=== PATIENT | male | born 1945 | race Caucasian/White ===

== ENCOUNTER → 2020-01-17 16:44 | Outpatient (CLI) | payer MEDICARE, OTHER | END | disposition home or self-care (01) | LOC: D.LAB 16:44 | PROVIDERS: ATTEND Nurse Practitioner Adult Health | DX: Z11.59 Encounter for screening for other viral diseases (principal); Z71.1 Person with feared health complaint in whom no diagnosis is made ==

== ENCOUNTER → 2020-01-20 14:16 | Outpatient (CLI) | payer MEDICARE, OTHER | END | disposition home or self-care (01) | LOC: D.RT 14:16 | PROVIDERS: ATTEND Internal Medicine Cardiovascular Disease | DX: J44.9 Chronic obstructive pulmonary disease, unspecified (principal) ==

== ENCOUNTER 2020-07-20 05:03 | Inpatient (IN) | payer MEDICARE, OTHER ==
[2020-07-18 15:17] LABS: APTT 27.5 SECONDS (22.8-39.4); INR 1.04 (0.85-1.17); PROTIME 12.6 SECONDS (11.6-15.0)
[2020-07-18 15:20] LABS: BILIRUBIN NEGATIVE (NEGATIVE); KETONE NEGATIVE (NEGATIVE); NITRITE NEGATIVE (NEGATIVE); UROBILINOGEN NORMAL mg/dL (< 2)
[2020-07-18 15:21] LABS: HEMATOCRIT 45.8 % (42.0-54.0); HEMOGLOBIN 15.7 g/dL (13.5-17.5); MCH 34.1 pg (26.0-34.0); MCHC 34.3 g/dL (31.0-37.0); MCV 99.3 fL (80.0-100.0); MEAN PLATELET VOLUME 9.7 fL (7.4-10.4); RBC 4.61 10x6/uL (4.20-6.10); RDW 13.1 % (11.5-14.5); WBC 6.1 10x3/uL (4.8-10.8)
[2020-07-18 15:35] LABS: ALBUMIN 4.2 g/dL (3.4-5.0); ANION GAP 13.7 mmol/L (8-16); BILIRUBIN - TOTAL 0.6 mg/dL (0.2-1.3); CALCIUM 9.2 mg/dL (8.5-10.1); CARBON DIOXIDE 27.3 mmol/L (21.0-32.0); CREATININE - SERUM 1.1 mg/dL (0.6-1.3); PROTEIN - SERUM 7.2 g/dL (6.4-8.2)
[~2020-07-20] VITALS: Ht 175.3 cm; Wt 75.9 kg
[2020-07-20] VITALS (15 sets, daily range): BP systolic 95–140; BP diastolic 49–75; BMI 24.7
--- NOTE | ~2020-07-20 | HEMODYNAMI ---
PATIENT:MARY ANN HERNDON JUDITH MEDICAL RECORD: [id number] : 41 LOCATION:[facility] D.[facility] ADMISSION DATE: 07/20/20 Generatedon:115:50 Patient name: MARY ANN HERNDON Patient #: [id number] SSN: : 1945 Date of study: Page: Of Hemodynamic Procedure Report Patient Data Patient Demographics First Name: MARY ANN Gender: Male Last Name: YANICK : 1945 [facility] Initial: JUDITH Age: 75 year(s) Patient #: [id number] Race: Unknown Additional ID: [id number] Contact details Address: [address] [place] [address] ROAD State: [place] City: [place] Zip code: [address] Past Medical History Allergies Allergen Reaction Date Comments Reported Contrast 07/25/2020 Admission Admission Data Admission Date: 07/20/2020 Admission Time: 5:03 Room #: [facility] Procedure Procedure Types Cath Procedure Peripheral Cath Diagnostic Procedure Miscellaneous Chest Tube Placement Procedure Description Procedure Staff Name Function Ashley Metcalf MD Performing Physician BARRINGTON BROOKS RT Monitor Andrew Cunningham RT Scrub Chanel Mcclure RN Nurse Luisana Sutton RN Nurse Hemodynamics Rest Pre Cath Intra NCS Post Cath Procedure Log Time Note 15:37:25 Patient allergic to Contrast Signature Audit [place] Stage Time Signature Unsigned Intra-Procedure 07/25/2020 BARRINGTON BROOKS RT 3:50:22 PM (R) [facility] [address] [place] [address]
--- NOTE | ~2020-07-20 | HEMODYNAMI ---
PATIENT:MARY ANN HERNDON JUDITH MEDICAL RECORD: [id number] : 41 LOCATION:[facility] ADMISSION DATE: 07/20/20 Generatedon:110:00 Patient name: MARY ANN HERNDON Patient #: [id number] SSN : : 1945 Date of study: 07/26/2020 Page: Of Hemodynamic Procedure Report Patient Data Patient Demographics Procedure consent was obtained First Name: MARY ANN Gender: Male Last Name: YANICK : 1945 [facility] Initial: JUDITH Age: 75 year(s) Patient #: [id number] Race: Unknown Additional ID: [id number] Contact details Address: [address] [place] [address] ROAD State: [place] City: [place] Zip code: [address] Past Medical History Allergies Allergen Reaction Date Comments Reported Contrast 07/25/2020 IV contrast dye 07/26/2020 Admission Admission Data Admission Date: 07/20/2020 Admission Time: 5:03 Room #: [id number] Height (in.): 68.9 BSA: 2.09 (m2) Height (cm.): 175 BMI: 30.37 (kg/m2) Weight (lbs.): 205.03 Weight (kg.): 93 Procedure Procedure Types Cath Procedure Diagnostic Procedure Cardioversion External Procedure Description Procedure Date Procedure Date: 07/26/2020 Procedure Start Time: 9:45 Procedure End Time: 9:57 Procedure Staff Name Function Som Joyner MD Performing Physician Tamela Kidd RT Monitor Yuli Carrion RT Monitor Jyoti Bustamante RN Nurse Mary Ann Dial MD Additional personnel Procedure Data Cath Procedure Fluoroscopy Diagnostic fluoroscopy Total fluoroscopy Time: 0 time: 0 min min Diagnostic fluoroscopy Total fluoroscopy dose: 0 dose: 0 mGy mGy Estimated blood loss: 0 ml Procedure Complications No complications Procedure Medications Medication Administration Route Dosage Oxygen etCO2 Nasal cannula 3 l/min Refer to Anesthesia Notes for Sedation Medications Hemodynamics Rest BSA: 2.09 (m2) O2 Consumption: Estimated: 240.16 (ml/min) O2 Consumption indexed : Estimated:114.91 (ml/min/m) Heart Rate: 71 (bpm) Snapshots Pre Cath Intra NCS Post Cath Vital Signs Time Heart Resp SPO2 etCO2 NIBP (mmHg) Rhythm Pain Sedation Rate (ipm) (%) (mmHg) Status Level (bpm) 9:41:40 73 17 100 0 139/76(108) NSR 0 (11) 10(A) , No pain 9:46:39 70 34 100 0 Measuring NSR 0 (11) 10(A) , No pain 9:49:14 52 17 98 0 111/61(74) NSR 0 (11) 9(A) , No pain 9:54:13 54 20 97 0 Measuring NSR 0 (11) 9(A) , No pain 9:54:28 54 20 98 0 118/58(94) NSR 0 (11) 9(A) , No pain 9:56:23 53 16 99 0 119/57(67) NSR 0 (11) 10(A) , No pain Medications Time Medication Route Dose Verified Delivered Reason Notes Effectiven ess by by 9:40:03 Oxygen etCO2 3 Som Montes used for Nasal l/min St Gil Bustamante RN procedure cannula MD 9:40:06 Refer to Som Montes Anesthesia St Gil Bustamante RN Notes for MD Sedation Medications Procedure Log Time Note 9:23:20 Informed consent obtained and on chart 9:23:49 Procedure Status Cardioversion. 9:23:50 Time tracking: Regular hours (M-F 7:00 - 5:00) 9:23:55 Plan of Care:Hemodynamics will remain stable., Cardiac rhythm will remain stable., Comfort level will be maintained., Respiratory function will remain adequate., Patient/ family verbilizes understanding of procedure., Procedure tolerated without complication., Recovers from procedure without complications.. 9:26:45 Patient Weight : 205.03 lbs 9:26:54 Patient Height : 68.9 inches 9:26:59 Tamela Kidd RT(R) sent for patient. Start room use. 9:39:33 Mary Ann Dial MD present and monitoring patient for TIVA. 9:39:48 Patient arrived from CVICU to CCL 1. Patient remains on bed/stretcher for procedure. 9:39:52 Warm blankets applied, and sim hugger turned on for patient comfort. 9:39:57 Correct patient and procedure confirmed by team. 9:39:57 ECG and BP/O2 sat monitors applied to patient. 9:40:03 Oxygen 3 l/min etCO2 Nasal cannula was administered by Jyoti Bustamante RN; used for procedure; Verbal order read back and verified. 9:40:03 Vital chart was started 9:40:06 Refer to Anesthesia Notes for Sedation Medications was administered by Jyoti Bustamante RN; ; Verbal order read back and verified. 9:40:06 Full Disclosure recording started 9:40:14 Pre-procedure instructions explained to patient. 9:40:15 Pre-op teaching completed and patient verbalized understanding. 9:40:16 Family unavailable. 9:40:17 Patient NPO since Midnight. 9:40:27 Patient allergic to IV contrast dye 9:40:29 Is patient on blood thinner?No 9:41:15 Previous problem with sedation/anesthesia? No ? 9:41:21 Snore? Yes 9:41:22 Sleep apnea? No 9:41:23 Deviated septum? No 9:41:24 Opens mouth fully? Yes 9:41:26 Sticks out tongue? Yes 9:41:29 Airway obstruction? Yes COPD 9:41:33 Dentures? No ? 9:41:44 Patient pain scale 0/10 ?. 9:42:23 Lab results completed and on chart. 9:42:26 Alarms reviewed by R. N. 9:42:27 Sharps counted by scrub and verified by R.N. 9:42:56 Quick Combo opened to sterile field. 9:44:23 --------ALL STOP TIME OUT------ 9:44:23 Final Timeout: patient, procedure, and site verified with staff and physician. All members of the team are in agreement. 9:44:29 Fire Safety Assessment: C--Open oxygen or nitrous oxide is being used. 9:44:33 Physical assessment completed. ASA score P 3 - A patient with severe systemic disease as per Som Joyner MD. 9:44:36 Sedation plan: TIVA Medication:Propofol 9:46:25 Baseline sample Acquired. 9:46:28 Rhythm: atrial fibrillation 9:46:34 ------Cardioversion------ 9:46:37 Procedure started. 9:46:49 Quick combo pads placed on patients chest and back. 9:46:51 Defibrillator synced and charged to 100 Joules. 9:47:04 Shock delivered. 9:47:34 Patient cardioverted to sinus bradycardia. 9:48:23 Procedure ended.(Physican Out) 9:48:52 Fluoroscopy time 00.00 minutes. 9:48:55 Dose Area Product 0 mGy/cm. 9:48:56 Fluoroscopy dose: 0 mGy 9:48:56 Flurop Dose total: 0 9:49:02 Post-procedure physical assessment completed. ASA score P 3 - A patient with severe systemic disease as per Som Joyner MD. 9:50:28 Post procedure rhythm: sinus rhythm 9:50:31 Estimated blood loss: 0 ml 9:50:34 Post procedure instruction explained to patient.Patient verbalizes understanding. 9:50:45 Procedure and supply charges have been captured, reviewed, submitted and are correct. 9:51:10 Procedure Complication : No complications 9:57:30 Vital chart was stopped 9:57:35 Operative report dictated upon procedure completion. 9:57:41 Report given to CVICU. 9:57:46 Patient transfered to CVICU with Bed. 9:57:48 Procedure ended. 9:57:48 Full Disclosure recording stopped 9:57:50 End room use (Document Last) 9:58:58 End room use (Document Last) 9:59:29 End room use (Document Last) Device Usage Item Manufacture Quantity Catalog Hospital Part Current Minimal Lot# / Name Number Charge Number Stock Stock Ser al# Code [employer] 1 [id number] Combo Signature Audit [place] Stage Time Signature Unsigned Intra-Procedure 07/26/2020 Yuli Carrion 9:58:58 AM RT(R) Intra-Procedure 07/26/2020 Jyoti Bustamante RN 9:59:29 AM Intra-Procedure 07/26/2020 Som Kilgore 10:00:03 AM Gil [place] [address] [place] [address]
[~2020-07-20 05:03] MED LIST: ELIPTA INH; SYMBICORT 16010.2 GM INH
--- NOTE | 2020-07-20 14:48 | NUR ---
AIR LEAK NOTED, DR VAN AWARE
[2020-07-21] VITALS (73 sets, daily range): BP systolic 87–151; BP diastolic 40–88; Ht 175.3 cm; Wt 75.9 kg
[2020-07-21 02:02] LABS: BASOPHILS 0.1 % (0-2); EOSINOPHILS 0.1 % (0-7); HEMATOCRIT 41.6 % (42.0-54.0); HEMOGLOBIN 14.1 g/dL (13.5-17.5); IMMATURE GRANULOCYTES 0.2 % (0-5); LYMPHOCYTE ABS# 1.64 10x3/uL (1.32-3.57); LYMPHOCYTES 13.4 % (15-50); MCH 33.6 pg (26.0-34.0); MCHC 33.9 g/dL (31.0-37.0); MEAN PLATELET VOLUME 9.8 fL (7.4-10.4); MONOCYTES 7.8 % (2-11); NEUTROPHIL ABS# 9.61 10x3/uL (1.78-5.38); NEUTROPHILS 78.4 % (40-80); PLATELET COUNT 224 10x3/uL (130-400); RDW 13.2 % (11.5-14.5); WBC 12.3 10x3/uL (4.8-10.8)
[2020-07-21 02:16] LABS: ALBUMIN 3.1 g/dL (3.4-5.0); ALKALINE PHOSPHATASE 47 U/L (30-120); ALT (SGPT) 34 U/L (10-68); BILIRUBIN - TOTAL 1.21 mg/dL (0.2-1.3); CALC OSMOLALITY 273 mosm/kg (275-300); CALCIUM 7.8 mg/dL (8.5-10.1); CARBON DIOXIDE 23.5 mmol/L (21.0-32.0); CHLORIDE - SERUM 102 mmol/L (98-107); CREATININE - SERUM 0.9 mg/dL (0.6-1.3); GLUCOSE 121 mg/dL (74-106); MAGNESIUM - SERUM 1.9 mg/dL (1.8-2.4); PHOSPHOROUS 3.9 mg/dL (2.5-4.9); POTASSIUM - SERUM 3.8 mmol/L (3.5-5.1); SODIUM 136 mmol/L (136-145); UREA NITROGEN 16 mg/dL (7-18); eGFR NON AFRICAN AMERICAN 87 mL/min (90-120)
--- NOTE | 2020-07-21 10:11 | OP ---
PATIENT NAME: MARY ANN HERNDON MEDICAL RECORD: [id number] :41 LOCATION:D.[facility] D.2301 ADMISSION DATE:07/20/20 SURGEON: MATTHEW VAN MD DATE OF OPERATION: 07/20/2020 SURGEON: Matthew Van MD PROCEDURE PERFORMED: 1. Right video-assisted thoracoscopic surgery. 2. Limited right anterior lateral thoracotomy. 3. Exploration of right hemithorax. 4. Wedge resection of right middle lobe. 5. Removal of visceral pleural lymph node. 6. Removal of calcified diaphragmatic lesion. 7. Bronchoscopy. PREOPERATIVE DIAGNOSIS: Lung mass. POSTOPERATIVE DIAGNOSIS: Benign lung mass. ANESTHESIA: Double lumen general endotracheal anesthesia. ESTIMATED BLOOD LOSS: 10 mL. SPECIMENS: 1. Wedge resection of right middle lobe. 2. Calcified diaphragmatic lesion. 3. Subpleural lymph node. COMPLICATIONS: None. CONDITION: Stable. DISPOSITION: ICU. OPERATIVE FINDINGS: 1. Bronchoscopy without endobronchial lesions and good position of the tube. 2. Thoracoscopy of the right with no visualized pleural mass or adhesions. No clear area for biopsy. 3. Small right anterolateral thoracotomy over the middle lobe. With direct finger palpation, a firm area was identified and it was removed with wedge resection. The frozen section was abnormal cells, but not likely malignant, but not normal lung parenchyma. Pathology pending permanent section. 4. A small subpleural middle lobe lymph node was removed. 5. The calcified diaphragmatic lesion that had been seen on the previous CT scan from last year as well was removed. 6. Good lung reexpansion. OPERATIVE INDICATION: PET positive right middle lobe lesion, new onset over the past 9 months. DESCRIPTION OF PROCEDURE: The patient was brought to the operating suite. Double lumen general endotracheal anesthesia was obtained. Bronchoscopy performed. The patient was turned in left lateral decubitus position with appropriate padding. The right chest was prepped and draped. The scope was OPERATIVE REPORT [id number] MARY ANN HERNDONN introduced below the tip of the scapula and maneuvered throughout the chest. The area of concern was visualized well, but no clearly identifiable tumor was noted. Therefore, anterolateral thoracotomy was performed. Small section of rib was removed. Pleural cavity was entered. The middle lobe was grasped and pulled upwardly and along the fissure. A firm area was noted. It was removed with a staple line and sent for frozen. Additionally, the entire upper lobe, remainder of the middle lobe and lower lobe were palpated as much as possible and no other lesions were noted with the exception of in the more inferior anterior portion of the middle lobe a 1-2 mm calcified lesion was noted and at the diaphragmatic surface the calcified lesion that had previously been seen on CT was identified. It was removed with electrocautery. After the path returned, possible carcinoid, small lymph node that was subpleural and near the interlobar space was removed. Chest tubes were placed. Thorough irrigation was performed. Hemostasis was ensured. The Marcaine rib block was performed. The chest was closed using two muscle layers, subcutaneous, subcuticular and Dermabond. The patient to ICU stable. TRANSINT:[id number] Voice Confirmation ID: [id number] DOCUMENT ID: [id number] MATTHEW VAN MD at 1011 CC: SOY FRAZIER MD [id number] DICTATION DATE: 07/20/20 1135 SKIN INSTALLER: 07/20/20 1206 ADM IN [facility] [address] [place] [address]
--- NOTE | 2020-07-21 15:29 | NUR ---
0725: DR. VAN NOTIFIED OF UNCONTROLLED ATRIAL FIB RATE 140-160. NEW ORDERS REC'D. NEW ORDERS REC'D. 0740: DR. JOHNSON NOTIFIED OF CONSULT. 0754: LOPRESSOR 2.5MG GIVEN IV. 0815: TO XRAY VIA BED FOR CT CHEST. 0835: RETURNED FROM XRAY. 1045: DR. VAN HERE. NEW ORDERS REC'D. 1200: DR. BLANC HERE. NEW ORDERS REC'D. 1445: ABEL SALES APN NOTIFIED OF CONTINUED UCAF RATE 140S TO 150S. NEW ORDERS REC'D.
[2020-07-22] VITALS (24 sets, daily range): BP systolic 96–150; BP diastolic 40–85
[2020-07-22 03:36] LABS: HEMATOCRIT 41.8 % (42.0-54.0); HEMOGLOBIN 14.1 g/dL (13.5-17.5); MCH 33.7 pg (26.0-34.0); MCHC 33.7 g/dL (31.0-37.0); MCV 99.8 fL (80.0-100.0); MEAN PLATELET VOLUME 9.9 fL (7.4-10.4); RBC 4.19 10x6/uL (4.20-6.10); WBC 9.5 10x3/uL (4.8-10.8)
[2020-07-22 03:52] LABS: ALBUMIN 2.8 g/dL (3.4-5.0); ALKALINE PHOSPHATASE 44 U/L (30-120); ALT (SGPT) 29 U/L (10-68); BILIRUBIN - TOTAL 1.46 mg/dL (0.2-1.3); CALC OSMOLALITY 272 mosm/kg (275-300); CALCIUM 7.6 mg/dL (8.5-10.1); CARBON DIOXIDE 26.4 mmol/L (21.0-32.0); CHLORIDE - SERUM 102 mmol/L (98-107); CREATININE - SERUM 0.9 mg/dL (0.6-1.3); GLUCOSE 105 mg/dL (74-106); PHOSPHOROUS 2.2 mg/dL (2.5-4.9); POTASSIUM - SERUM 3.8 mmol/L (3.5-5.1); PROTEIN - SERUM 5.9 g/dL (6.4-8.2); SODIUM 136 mmol/L (136-145); UREA NITROGEN 15 mg/dL (7-18); eGFR NON AFRICAN AMERICAN 87 mL/min (90-120)
--- NOTE | 2020-07-22 08:37 | NUR ---
PT REPORTED MISSING CELLPHONE STATING HE HAD IT LAST NIGHT, AND THINKS HE LEFT IT ON HIS MEAL TRAY AT SUPPERTIME. HIS PHONE WAS NOT FOUND IN HIS ROOM; LOOKED IN [facility]ILITY ROOM AND DID NOT FIND HIS CELLPHONE. ATTEMPTED TO CALL HIS PHONE TO SEE IF WE COULD HEAR IT RING, AND IT WENT STRAIGHT TO [employer]. CALLED DI[employer]ARY TO SEE IF THEY HAVE FOUND A CELLPHONE AND THEY SAY THEY HAVE NOT, BUT IF ONE TURNS UP THEY WILL CALL US. CALLED [employer] AND THEY HAVE NOT FOUND A CELLPHONE. WILL CONTINUE SEARCHING.
--- NOTE | 2020-07-22 11:20 | NUR ---
1000: CARDIOLOGY PAGED. 1020: DR. ARCE AND VIVIAN PAZ HERE. NEW ORDERS REC'D. 1030: DR. VAN HERE. CONDITION UPDATE GIVEN. NEW ORDERS REC'D.
--- NOTE | 2020-07-22 12:21 | NUR ---
1200: DR. REYNA HERE AGAIN. HR CONTINUES TO JUMP UP TO 160-170. NEW ORDERS REC'D. 1215: SIGNIFICANT AMT SQ AIR NOTED TO NECK AND FACE. DR. ACEVEDO PAGED. INSTRUCTED BY DR. ACEVEDO TO NOTIFY DR. VAN. 1230: DR. VAN NOTIFIED OF INCREASED SQ AIR. NO NEW ORDERS.
[2020-07-23] VITALS (24 sets, daily range): BP systolic 90–149; BP diastolic 26–99
[2020-07-23 04:43] LABS: BASOPHILS 0.1 % (0-2); EOSINOPHILS 0.8 % (0-7); HEMATOCRIT 41.4 % (42.0-54.0); HEMOGLOBIN 13.9 g/dL (13.5-17.5); IMMATURE GRANULOCYTES 0.2 % (0-5); LYMPHOCYTE ABS# 0.95 10x3/uL (1.32-3.57); LYMPHOCYTES 8.1 % (15-50); MCH 33.9 pg (26.0-34.0); MCHC 33.6 g/dL (31.0-37.0); MEAN PLATELET VOLUME 10.1 fL (7.4-10.4); MONOCYTES 5.8 % (2-11); NEUTROPHIL ABS# 9.91 10x3/uL (1.78-5.38); PLATELET COUNT 179 10x3/uL (130-400); WBC 11.7 10x3/uL (4.8-10.8)
[2020-07-23 05:04] LABS: ALBUMIN 2.5 g/dL (3.4-5.0); ALKALINE PHOSPHATASE 45 U/L (30-120); ALT (SGPT) 26 U/L (10-68); BILIRUBIN - TOTAL 1.03 mg/dL (0.2-1.3); CALC OSMOLALITY 273 mosm/kg (275-300); CALCIUM 7.7 mg/dL (8.5-10.1); CARBON DIOXIDE 27.3 mmol/L (21.0-32.0); CHLORIDE - SERUM 103 mmol/L (98-107); CREATININE - SERUM 0.9 mg/dL (0.6-1.3); GLUCOSE 101 mg/dL (74-106); MAGNESIUM - SERUM 2.1 mg/dL (1.8-2.4); PHOSPHOROUS 1.9 mg/dL (2.5-4.9); POTASSIUM - SERUM 3.8 mmol/L (3.5-5.1); PROTEIN - SERUM 5.8 g/dL (6.4-8.2); SODIUM 136 mmol/L (136-145); UREA NITROGEN 18 mg/dL (7-18); eGFR NON AFRICAN AMERICAN 87 mL/min (90-120)
--- NOTE | 2020-07-23 10:20 | NUR ---
1000: DR. VAN HERE. R ANTERIOR CHEST TUBE REPOSTITIONED BY DR. VAN. DR. ACEVEDO AND DR. ARCE ALSO MAKING ROUNDS AND CONDITION UPDATE GIVEN. 1015: R RADIAL ARTERIAL LINE DC'D. MANUAL PRESSURE HELD X 3 MIN. SITE DRESSED WITH 2X2 AND SECURED WITH TAPE.
--- NOTE | 2020-07-23 15:00 | EC ---
PATIENT:MARY ANN HERNDON DATE OF SERVICE: 07/20/20 SEX: M MEDICAL RECORD: [id number] DATE OF : 41 LOCATION:[facility] D230 AGE OF PATIENT: 75 ADMISSION DATE: 07/20/20 REFERRING PHYSICIAN: INTERPRETING PHYSICIAN: CRISELDA GAY MD ECHOCARDIOGRAM REPORT ECHO CHARGES 5 ECHO LIMITED Date: 07/21/20 CLINICAL DIAGNOSIS: AFIB ECHOCARDIOGRAPHIC MEASUREMENTS (adult normal given) AC root (d.<3.7cm) cm LV Septum d (<1.2 cm> 1.2 cm Valve Excursion cm LV Septum (systole) 1.3 cm Left Atria (s.<4.0cm> 3.5 cm LVPW d(<1.2cm) 1.0 cm RV (d.<2.3cm) 3.3 cm LVPW (sytole) 1.2 cm LV diastole(<5.6CM) 4.0 cm MV E-F(>70mm/sec) cm LV systole 2.8 cm LVOT Diameter 2.0 cm MV exc.(>10mm) cm Est.ejection fraction (50-75%) % DOPPLER: LVIT cm/sec A 44 cm/sec E 39 cm/sec LA cm/sec RVSP 40 mmHg LVOT 51 cm/sec AOP1/2T m/s Asc. Ao cm/sec RVOT cm/sec RA cm/sec PA cm/sec AV Gradient Peak mmHg AV Mean mmHg AV Area 1.6 cm MV Gradient Peak 1.7 mmHg MV Mean 1.0 mmHg MV Area cm COMMENTS: Drill Press Tender: Steffen LOCKETT Orthotic Aide: 5 Dr. Gay TAPE# Pericardial Effusion N DATE OF SERVICE: CLINICAL INDICATION: Atrial fibrillation. INTERPRETATION: Technically difficult limited study. Overall, left ventricular chamber size and function appears normal with an ejection fraction of 55% to 60%. Left atrial chamber appears normal. Right atrial and right ventricular chamber is not well visualized and appeared normal. Aortic valve is not well visualized. Mitral valve appears normal. Tricuspid valve is not well visualized. Mild tricuspid regurgitation. Pulmonic valve is not well ECHOCARDIOGRAM REPORT [id number] MARY ANN HERNDON visualized. No pericardial effusion visualized. IMPRESSION: Technically difficult limited study. Overall, normal left ventricular chamber size and contractile function with ejection fraction of 55% to 60%. TRANSINT:[id number] Voice Confirmation ID: [id number] DOCUMENT ID: [id number] CRISELDA GAY MD at 1500 CC: [id number] DICTATION DATE: 07/22/20 1307 SCHOOL LABORATORY TECHNICIAN: 07/22/20 1427 ADM IN [facility] [address] [place] [address]
--- NOTE | 2020-07-23 15:58 | NUR ---
1520: DR. ARCE NOTIFIED OF CONTINUED UCAF RATE 120-140. NEW ORDER REC'D.
[2020-07-24] VITALS (28 sets, daily range): BP systolic 90–157; BP diastolic 44–109
[2020-07-24 04:43] LABS: BASOPHILS 0.1 % (0-2); HEMATOCRIT 36.1 % (42.0-54.0); HEMOGLOBIN 12.1 g/dL (13.5-17.5); IMMATURE GRANULOCYTES 0.1 % (0-5); LYMPHOCYTE ABS# 0.99 10x3/uL (1.32-3.57); LYMPHOCYTES 11.5 % (15-50); MCH 33.3 pg (26.0-34.0); MCHC 33.5 g/dL (31.0-37.0); MCV 99.4 fL (80.0-100.0); MEAN PLATELET VOLUME 9.5 fL (7.4-10.4); MONOCYTES 7.4 % (2-11); NEUTROPHILS 77.9 % (40-80); PLATELET COUNT 197 10x3/uL (130-400); RBC 3.63 10x6/uL (4.20-6.10); RDW 12.6 % (11.5-14.5); WBC 8.6 10x3/uL (4.8-10.8)
[2020-07-24 04:59] LABS: ALBUMIN 2.3 g/dL (3.4-5.0); ANION GAP 6.5 mmol/L (8-16); BILIRUBIN - TOTAL 1.06 mg/dL (0.2-1.3); CALCIUM 7.8 mg/dL (8.5-10.1); CARBON DIOXIDE 28.8 mmol/L (21.0-32.0); CREATININE - SERUM 1.1 mg/dL (0.6-1.3); MAGNESIUM - SERUM 2.1 mg/dL (1.8-2.4); POTASSIUM - SERUM 4.3 mmol/L (3.5-5.1); PROTEIN - SERUM 5.6 g/dL (6.4-8.2)
[2020-07-24 05:05] LABS: PHOSPHOROUS 3.1 mg/dL (2.5-4.9)
--- NOTE | 2020-07-24 09:30 | NUR ---
PT TO CT WITH CT STAFF AND ANOTHER RN
--- NOTE | 2020-07-24 10:06 | NUR ---
[address]
--- NOTE | 2020-07-24 10:15 | CN ---
PATIENT NAME:MARY ANN HERNDON MEDICAL RECORD: [id number] : 41 LOCATION:[facility] ADMIT DATE: 07/20/20 ACCOUNT: [id number] CONSULTING PHYSICIAN: KIMMY CHAMBERS MD REFERRING PHYSICIAN: LANDON GONZALES MD DATE OF CONSULTATION: 07/21/2020 HISTORY OF PRESENT ILLNESS: A 75-year-old gentleman with history of obstructive coronary artery disease, status post right middle lobe resection via Dr. Gnozales. Postoperatively, he has developed atrial fibrillation, is asymptomatic from this standpoint. He has got baseline dyspnea, although no worse. No anginal type symptomatology of dizziness, palpitations. We are asked to see him concerning his cardiovascular status. PAST MEDICAL HISTORY: He has a history of obstructive pulmonary disease. HOME MEDICATIONS: Include Symbicort 2 puffs b.i.d. ALLERGIES: CONTRAST. SOCIAL HISTORY: Retired. Quit smoking several years back. Nondrinker. Easily takes care of all his ADLs. REVIEW OF SYSTEMS: The patient reports easy bruising but reports no swollen glands. The patient reports no fever, no night sweats, no significant weight gain, no significant weight loss. No significant exercise tolerance. The patient reports no dry eyes, no irritation, no vision change. Patient reports no difficulty hearing and no ear pain. Patient reports no frequent nose bleeds or nose and sinus problems. Patient reports on arm pain on exertion. No shortness of breath while lying down. No history of heart murmur. Patient reports no cough, no wheezing or coughing up blood. Patient reports no abdominal pain, no vomiting. Normal appetite. No diarrhea and not vomiting blood. No nausea and no constipation. Patient reports no incontinence. No difficulty urinating. No hematuria. No increased frequency. Patient reports no muscle aches. No weakness, no arthralgias, no back pain. No swelling of the extremities. Patient reports no abnormal mole, no jaundice, no rashes. Reports no loss of consciousness. No weakness and no numbness. No seizures, dizziness, or headaches. The patient reports no depression, no sleep disturbance, feeling safe in a relationship and no alcohol abuse. Patient reports on fatigue. Reports no runny nose or sinus pressure. No itching, no hives, and no frequent sneezing. PHYSICAL EXAMINATION: GENERAL: Pleasant, alert, oriented, in no acute distress. VITAL SIGNS: Blood pressure 116/59, pulse 121 and irregular. HEENT: Normocephalic, atraumatic. NECK: No bruits are noted. CARDIOVASCULAR: Heart is irregular, slightly tachycardic. II/ systolic ejection murmur. LUNGS: Slightly prolonged expiratory phase with expiratory wheezes. ABDOMEN: Soft, nontender. EXTREMITIES: Pulses are well preserved, 2+ with no edema. NEUROLOGIC: Grossly intact. IMPRESSION AND PLAN: Postoperative atrial fibrillation. We will begin Cardizem CONSULT REPORT [id number] MARY ANN HERNDON for rate control and hopefully Cordarone and hopefully stabilize rhythm. We would plan on treating this similar to postop coronary artery bypass grafting, atrial fibrillation for approximately 2 months after congregational of normal sinus rhythm. Echo study has been ordered. TRANSINT:[id number] Voice Confirmation ID: [id number] DOCUMENT ID: [id number] KIMMY CHAMBERS MD at 1015 CC: [id number] DICTATION DATE: 07/21/20 1241 MAMMALOGY TEACHER: 07/21/20 1725 ADM IN [facility] [address] [place] [address]
--- NOTE | 2020-07-24 10:59 | NUR ---
Nutrition Follow-up: POD 4 VATS. Pt down to CT at time of visit this AM. Overall poor PO intake reported. Per nursing, pt states that he will eat more when he can see (eyes are swollen). Diet: NPO PO intake: 25% avg x 7 meals Wt: 203# (07/24); 201# (07/21) Labs noted: Na 133, Ca 7.8, Alb 2.3 Meds noted: KDur, Protonix, electrolyte protocol -Resume diet when medically feasible; encourage PO intake and honor food preferences within diet restrictions. -Monitor wt. -RD follow-up: 07/26
--- NOTE | 2020-07-24 12:57 | NUR ---
1200 REPORT GIVEN TO SAVANNAH JONAS RN
--- NOTE | 2020-07-24 14:39 | NUR ---
Pt has had a chest tube removed per Dr. Gonzales, the Pt is now gone to have a different chest tube placed. Pt denies any pain or needs prior to leaving.
[2020-07-25] VITALS (38 sets, daily range): BP systolic 87–153; BP diastolic 56–97
[2020-07-25 04:50] LABS: PHOSPHOROUS 3.1 mg/dL (2.5-4.9)
--- NOTE | 2020-07-25 06:01 | NUR ---
Patient with pain controlled/minimized with use of ELECTROSTATIC PAINTER pump. Chest tubes secure and patent; right draining scant amount of serous fluid, left tubes draining sanguenous fluid. Urine output adequate. HR elevated, atrial flutter 130-150s, amiodarone drip infusing as ordered with HR lowered to 120s. Encouraged to use incentive spirometer at bedside, return demonstration done by patient. BP remains stable on amiodarone drip. See flowsheets for details.
[2020-07-25 17:56] LABS: CALC OSMOLALITY 272 mosm/kg (275-300); CALCIUM 8.3 mg/dL (8.5-10.1); CARBON DIOXIDE 29.1 mmol/L (21.0-32.0); CHLORIDE - SERUM 100 mmol/L (98-107); CREATININE - SERUM 0.9 mg/dL (0.6-1.3); GLUCOSE 119 mg/dL (74-106); POTASSIUM - SERUM 4.1 mmol/L (3.5-5.1); SODIUM 135 mmol/L (136-145); eGFR NON AFRICAN AMERICAN 87 mL/min (90-120)
[2020-07-25 18:03] LABS: UREA NITROGEN 19 mg/dL (7-18)
--- NOTE | 2020-07-25 21:29 | NUR ---
SPOKE WITH DR. VAN AND GAVE HIM AN UPDATE ON PT PER HIS REQUEST. WILL CONTINUE TO MONITOR
[2020-07-26] VITALS (25 sets, daily range): BP systolic 108–160; BP diastolic 54–83
[2020-07-26 05:37] LABS: MAGNESIUM - SERUM 2.1 mg/dL (1.8-2.4); PHOSPHOROUS 2.9 mg/dL (2.5-4.9)
--- NOTE | 2020-07-26 10:00 | NUR ---
0930 TO SUPERVISOR ELEMENTARY EDUCATION WITH SUPERVISOR ELEMENTARY EDUCATION STAFF
--- NOTE | 2020-07-26 10:22 | NUR ---
PT RETURNED FROM [facility] SR50S ATUL ROLLE, DR VAN IN UNIT AND AWARE, WILL CONTINUE ON NRB PER DR FRAZIER DURING ROUNDS
--- NOTE | 2020-07-26 10:59 | NUR ---
Nutrition Follow-up: Pt out of room for cardioversion at time of visit this AM. Good/fair PO intake yesterday. Diet: NPO PO intake: 83% avg x 3 meals yesterday Wt: 203# (07/26) Labs noted (07/25): Na 135, Ca 8.3 Meds noted: KDur, Protonix, electrolyte protocol -Resume diet when medically feasible. -RD follow-up: 07/28
--- NOTE | 2020-07-26 12:33 | NUR ---
[address] REMOVED BY Meme MUSE FROM IR
--- NOTE | 2020-07-26 18:02 | NUR ---
CVL DRESSING CHANGED
--- NOTE | 2020-07-26 19:32 | NUR ---
PT IN BED AT THIS TIME ON 15L O2 VIA NRB. VSS. NAD NOTED. NO NEEDS AT THIS TIME. WILL CONTINUE TO MONITOR.
[2020-07-27] VITALS (32 sets, daily range): BP systolic 111–158; BP diastolic 56–103
[2020-07-27 04:39] LABS: BASOPHILS 0.2 % (0-2); EOSINOPHILS 3.9 % (0-7); HEMATOCRIT 36.4 % (42.0-54.0); HEMOGLOBIN 12.4 g/dL (13.5-17.5); IMMATURE GRANULOCYTES 0.4 % (0-5); LYMPHOCYTE ABS# 0.97 10x3/uL (1.32-3.57); LYMPHOCYTES 8.7 % (15-50); MCH 33.2 pg (26.0-34.0); MCHC 34.1 g/dL (31.0-37.0); MCV 97.3 fL (80.0-100.0); MONOCYTES 3.8 % (2-11); NEUTROPHIL ABS# 9.29 10x3/uL (1.78-5.38); RBC 3.74 10x6/uL (4.20-6.10); RDW 12.5 % (11.5-14.5); WBC 11.2 10x3/uL (4.8-10.8)
[2020-07-27 04:46] LABS: PLATELET COUNT 295 10x3/uL (130-400)
[2020-07-27 05:04] LABS: CALC OSMOLALITY 271 mosm/kg (275-300); CHLORIDE - SERUM 101 mmol/L (98-107); CREATININE - SERUM 0.7 mg/dL (0.6-1.3); GLUCOSE 112 mg/dL (74-106); SODIUM 135 mmol/L (136-145); eGFR NON AFRICAN AMERICAN > 90 mL/min (90-120)
[2020-07-27 05:11] LABS: UREA NITROGEN 14 mg/dL (7-18)
--- NOTE | 2020-07-27 10:59 | NUR ---
VITALS NOT RECORDED IN SYSTEM FROM [id number].
[2020-07-28] VITALS (54 sets, daily range): BP systolic 111–165; BP diastolic 48–85
[2020-07-28 04:37] LABS: BASOPHILS 0.2 % (0-2); EOSINOPHILS 3.3 % (0-7); HEMATOCRIT 39.6 % (42.0-54.0); HEMOGLOBIN 13.6 g/dL (13.5-17.5); IMMATURE GRANULOCYTES 0.5 % (0-5); LYMPHOCYTE ABS# 0.73 10x3/uL (1.32-3.57); LYMPHOCYTES 6.7 % (15-50); MCH 33.3 pg (26.0-34.0); MCHC 34.3 g/dL (31.0-37.0); MCV 96.8 fL (80.0-100.0); MEAN PLATELET VOLUME 9.1 fL (7.4-10.4); MONOCYTES 7.5 % (2-11); NEUTROPHIL ABS# 8.91 10x3/uL (1.78-5.38); NEUTROPHILS 81.8 % (40-80); RBC 4.09 10x6/uL (4.20-6.10); RDW 12.5 % (11.5-14.5); WBC 10.9 10x3/uL (4.8-10.8)
[2020-07-28 04:44] LABS: CALC OSMOLALITY 265 mosm/kg (275-300); CALCIUM 8.3 mg/dL (8.5-10.1); CARBON DIOXIDE 27.6 mmol/L (21.0-32.0); CHLORIDE - SERUM 97 mmol/L (98-107); CREATININE - SERUM 0.7 mg/dL (0.6-1.3); GLUCOSE 117 mg/dL (74-106); SODIUM 132 mmol/L (136-145); UREA NITROGEN 12 mg/dL (7-18); eGFR NON AFRICAN AMERICAN > 90 mL/min (90-120)
[2020-07-28 04:48] LABS: PLATELET COUNT 376 10x3/uL (130-400)
--- NOTE | 2020-07-28 09:41 | OP ---
PATIENT NAME: PIETRO MARTIN MEDICAL RECORD: [id number] :41 [facility] ADMISSION DATE:07/20/20 SURGEON: KIMMY CHAMBERS MD DATE OF OPERATION: 07/26/2020 PROCEDURE: Cardioversion. After general sedation via TIVA via anesthesia, a single synchronized shock at 100 joules was successful in restoring atrial flutter to normal sinus rhythm. IMPRESSION: Successful cardioversion note on Pietro Martin. During the procedure, the patient was monitored continuously with pulse oximetry, telemetry, noninvasive blood pressure monitoring. TRANSINT:[id number] Voice Confirmation ID: [id number] DOCUMENT ID: [id number] KIMMY CHAMBERS MD at 0941 CC: [id number] DICTATION DATE: 07/26/20 0954 CARPENTER REPAIR: 07/26/201941 ADM IN [facility] [address] [place] [address]
[2020-07-28] MEDS ORDERED: MUCINEX DM ER1 EAC1 PO (10:28)
[2020-07-28] MEDS ORDERED: LOW DOSE ASPIRI81 M1 PO (10:28)
--- NOTE | 2020-07-28 11:06 | NUR ---
Nutrition Reassessment/Follow-up: POD 8 VATS. Good/fair PO intake. Ate >50% of breakfast this AM. Denies N/V. Reports last BM was several days ago; +flatus. Diet: Low Na/Cardiac PO intake: 50-75% Wt: 201# (07/28); 201# (07/21) Labs noted: Na 132, Glu 117, Ca 8.3 Meds noted: Colace, Protonix, KDur, electrolyte protocol -Nutrition needs unchanged. -Encourage PO intake and honor food preferences within diet restrictions. -RD follow-up: 07/31
--- NOTE | 2020-07-28 15:32 | MORECARE ---
CASE MANAGEMENT DISCHARGE SUMMARY PATIENT: MARY ANN HERNDON JUDITH UNIT: [id number] ADM DATE: 07/20/20 AGE: 75 : 43 SEX: M [facility] AUTHOR: MINE KRAUSE PHYSICIAN: REFERRING PHYSICIAN: LANDON VAN MD DATE OF SERVICE: 07/28/20 Discharge Plan Patient Name: MARY ANN HERNDON Facility: [facility]:[place] : 1945 Planned Disposition: Home Anticipated Discharge Date: Discharge Date: Expected LOS: Initial Reviewer: [email or web address] Initial Review Date: 07/28/2020 Generated: 07/28/20 4:31 pm DCPIA - Discharge Planning Initial Assessment Updated by [email or web address]: Sofiya Pratt on 07/28/20 3:31 pm * Is the patient Alert and Oriented? Yes * How many steps to enter\exit or inside your home? 1 W/RAIL * PCP DR LANCE SLAUGHTER * Pharmacy [facility] IN [place], [place] * Preadmission Environment Home with Family * ADLs Independent * Equipment Bedside Commode Cane Crutch Grab Bars Rolling Walker Shower Chair * List name and contact numbers for known caregivers / representatives who currently or will assist patient after discharge: JOYCELYN HERNDON, SPOUSE, * Verbal permission to speak to the caregivers and representatives has been obtained from the patient. Yes * Community resources currently utilized None * Additional services required to return to the preadmission environment? No * Can the patient safely return to the preadmission environment? Yes * Has this patient been hospitalized within the prior 30 days at any hospital? No External Providers External Provider: [facility] [place] Next Contact Date: Service Request Date: Service Type: Resolution: Reviewer: Comments: Patient Name: MARY ANN HERNDON Page [phone] at 1532 All edits/amendments must be made on the electronic document DICTATION DATE: 07/28/20 1531 LOCAL TRUCK DRIVER: MARLIN 07/28/20 1531 RPT#: [id number] DC DATE: STATUS: ADM IN [facility] [address] [place] [address] END OF REPORT
--- NOTE | 2020-07-28 15:41 | MORECARE ---
CASE MANAGEMENT DISCHARGE SUMMARY PATIENT: MARY ANN HERNDON JUDITH UNIT: [id number] ADM DATE: 07/20/20 AGE: 75 : 43 SEX: M ROOM/BED: [facility] AUTHOR: MINE KRAUSE PHYSICIAN: REFERRING PHYSICIAN: LANDON VAN MD DATE OF SERVICE: 07/28/20 Discharge Plan Patient Name: MARY ANN HERNDON Facility: [facility]:[place] : 1945 Planned Disposition: Home Anticipated Discharge Date: Discharge Date: Expected LOS: Initial Reviewer: [email or web address] Initial Review Date: 07/28/2020 Generated: 07/28/20 4:41 pm Comments DCP- Discharge Planning Updated by [email or web address]: Sofiya Pratt on 07/28/20 2:[address] Patient Name: MARY ANN HERNDON Admission Status: Elective Accout number: [id number] Admission Date: 07-20-2020 : 1945 Admission Diagnosis:SOLITARY PULMONARY NODULE Attending: LANDON VAN Current LOS: 8 Anticipated DC Date: Planned Disposition: Home Primary Insurance: MEDICARE A & B Discharge Planning Comments: CM met with patient to discuss discharge planning / needs. CM discussed availability of home health, rehab services, and medical equipment. Patient states he plans to discharge to home. Lives with his , Joycelyn who will transport him home upon discharge. States the home environment is safe. Denies the need for Home Health. Signed MIGEL for [facility] for Oxygen. Copy on chart. CM explained and served DC IMM. Copy on chart. CM called and spoke with Yovany at [facility] about orders for Oxygen. Faxed records as requested. [facility] will deliver portable tank to patient's room this afternoon in anticipation of potential weekend discharge. CM informed patient and CVICU nurse. Patient verbalized understanding and satisfaction with discharge plans. CM will continue to follow and assist as needed with discharge planning / needs. Crab Butcher: Sofiya Pratt DCPIA - Discharge Planning Initial Assessment Updated by [id number]: Sofiya Pratt on 07/28/20 3:31 pm * Is the patient Alert and Oriented? Yes * How many steps to enter\exit or inside your home? 1 W/RAIL * PCP DR LANCE SLAUGHTER * Pharmacy [facility] IN [place], [place] * Preadmission Environment Home with Family * ADLs Independent * Equipment Bedside Commode Cane Crutch Grab Bars Rolling Walker Shower Chair * List name and contact numbers for known caregivers / representatives who currently or will assist patient after discharge: JOYCELYN HERNDON, SPOUSE, * Verbal permission to speak to the caregivers and representatives has been obtained from the patient. Yes * Community resources currently utilized None * Additional services required to return to the preadmission environment? No * Can the patient safely return to the preadmission environment? Yes * Has this patient been hospitalized within the prior 30 days at any hospital? No Coverage Notice Reviewer: [id number] Pratt Notice Issued Date-Time: 07/28/2020 14:44 Notice Type: Patient Choice Letter Notice Delivered To: Patient Relationship to Patient: Self City Driver Name: Delivery Method: HAND - Hand Delivered Ingrid Days: Prior Verbal Notification: Recipient Understood Notice: Yes Recipient Signature: Yes Med Rec Note Co-signed by Attending: Coverage Notice Comment: Fozia SHARIF Reviewer: [id number] Pratt Notice Issued Date-Time: 07/28/2020 14:45 Notice Type: IM Discharge Notice Notice Delivered To: Patient Relationship to Patient: Self City Driver Name: Delivery Method: HAND - Hand Delivered Ingrid Days: Prior Verbal Notification: Recipient Understood Notice: Yes Recipient Signature: Yes Med Rec Note Co-signed by Attending: Coverage Notice Comment: Last DP export: 07/28/20 2:32 p Patient Name: MARY ANN HERNDON Page [id number] at 1541 All edits/amendments must be made on the electronic document DICTATION DATE: 07/28/20 1541 CANDY BUTCHER: MARLIN 07/28/20 1541 RPT#: [id number] DC DATE: STATUS: ADM IN [facility] [address] [place] [address] END OF REPORT
[2020-07-29] VITALS (44 sets, daily range): BP systolic 109–144; BP diastolic 46–103
[2020-07-29 05:04] LABS: BASOPHILS 0.2 % (0-2); EOSINOPHILS 3.7 % (0-7); HEMATOCRIT 37.7 % (42.0-54.0); HEMOGLOBIN 12.8 g/dL (13.5-17.5); IMMATURE GRANULOCYTES 0.7 % (0-5); LYMPHOCYTE ABS# 0.93 10x3/uL (1.32-3.57); MCH 32.8 pg (26.0-34.0); MCV 96.7 fL (80.0-100.0); MEAN PLATELET VOLUME 8.8 fL (7.4-10.4); MONOCYTES 8.3 % (2-11); NEUTROPHIL ABS# 9.22 10x3/uL (1.78-5.38); NEUTROPHILS 79.1 % (40-80); PLATELET COUNT 416 10x3/uL (130-400); RDW 12.4 % (11.5-14.5); WBC 11.7 10x3/uL (4.8-10.8)
--- NOTE | 2020-07-29 13:31 | NUR ---
PATIENT UP IN CHAIR PER PHYSICAL THERAPY. TOLERATED FAIR. DOES BECOME SHORT OF BREATH WITH MINIMAL EXCERTION. CHOU CATH REMOVED. AMBULATED TO BATHROOM AND VOIDED. LARGE SOFT BROWN STOOL. BECOMES SHORT OF BREATH WALKING TO BATHROOM. ON OXYGEN AT 3 LITERS, TRIED 2 LITERS ON OXYGEN AND PATIENT SAT DROPPED TO 88%. INCENTIVE SPIROMETRY DONE 10 1250 SEVERAL TIMES. MONITOR JUNCTIONAL RHYTHM, GOES INTO SR WHEN SHORT OF BREATH RATE IN 70'S. SHAVE, HAIR WASHED AND COMPLETE HIBCLENS BATH GIVEN WITH LINEN CHANGE. TOLERATED WELL. READING BOOK AMD WATCHING TV. APPETITE GOOD.
[2020-07-30] VITALS (17 sets, daily range): BP systolic 112–161; BP diastolic 46–115
--- NOTE | 2020-07-30 08:37 | NUR ---
AMBULATED TO BATHROOM WITH OXYGEN. PATIENT GAIT IS MORE STEADY TODAY THAN YESTERDAY. DRESSINGS BILATERAL CHEST DRY AND INTACT. VOIDING WITHOUT DIFFICULTY. UP IN CHAIR AT BEDSIDE. BREAKFAST SERVED. MONITOR JUNCTIONAL RHYTHM. PATIENT STATES HE IS A LITTLE WINDED WHEN AMBULATING. GOOD APPETITE.
[2020-07-30 10:45] LABS: BASOPHILS 0.2 % (0-2); HEMATOCRIT 36.8 % (42.0-54.0); HEMOGLOBIN 12.9 g/dL (13.5-17.5); IMMATURE GRANULOCYTES 1.2 % (0-5); LYMPHOCYTE ABS# 0.69 10x3/uL (1.32-3.57); LYMPHOCYTES 5.7 % (15-50); MCH 33.9 pg (26.0-34.0); MCHC 35.1 g/dL (31.0-37.0); MCV 96.8 fL (80.0-100.0); MEAN PLATELET VOLUME 8.7 fL (7.4-10.4); NEUTROPHIL ABS# 9.96 10x3/uL (1.78-5.38); NEUTROPHILS 82.9 % (40-80); PLATELET COUNT 460 10x3/uL (130-400); RDW 12.6 % (11.5-14.5)
[2020-07-30 10:54] LABS: CALC OSMOLALITY 264 mosm/kg (275-300); CALCIUM 8.4 mg/dL (8.5-10.1); CARBON DIOXIDE 26.4 mmol/L (21.0-32.0); CHLORIDE - SERUM 98 mmol/L (98-107); CREATININE - SERUM 0.9 mg/dL (0.6-1.3); GLUCOSE 109 mg/dL (74-106); POTASSIUM - SERUM 4.7 mmol/L (3.5-5.1); SODIUM 131 mmol/L (136-145); UREA NITROGEN 16 mg/dL (7-18); eGFR NON AFRICAN AMERICAN 87 mL/min (90-120)
[2020-07-30 11:05] LABS: ALBUMIN 2.6 g/dL (3.4-5.0); ALKALINE PHOSPHATASE 62 U/L (30-120); ALT (SGPT) 30 U/L (10-68); PROTEIN - SERUM 6.4 g/dL (6.4-8.2)
[2020-07-31] VITALS (12 sets, daily range): BP systolic 129–162; BP diastolic 50–74
[2020-07-31 07:56] LABS: BASOPHILS 0.4 % (0-2); EOSINOPHILS 4.1 % (0-7); HEMATOCRIT 35.7 % (42.0-54.0); HEMOGLOBIN 12.3 g/dL (13.5-17.5); IMMATURE GRANULOCYTES 0.6 % (0-5); MCH 33.1 pg (26.0-34.0); MCHC 34.5 g/dL (31.0-37.0); MEAN PLATELET VOLUME 8.6 fL (7.4-10.4); MONOCYTES 8.7 % (2-11); NEUTROPHIL ABS# 7.87 10x3/uL (1.78-5.38); NEUTROPHILS 79.2 % (40-80); PLATELET COUNT 460 10x3/uL (130-400); RBC 3.72 10x6/uL (4.20-6.10); RDW 12.6 % (11.5-14.5)
[2020-07-31 08:03] LABS: ALBUMIN 2.6 g/dL (3.4-5.0); ALKALINE PHOSPHATASE 64 U/L (30-120); ALT (SGPT) 29 U/L (10-68); BILIRUBIN - TOTAL 0.57 mg/dL (0.2-1.3); CALC OSMOLALITY 264 mosm/kg (275-300); CALCIUM 8.5 mg/dL (8.5-10.1); CHLORIDE - SERUM 99 mmol/L (98-107); CREATININE - SERUM 0.9 mg/dL (0.6-1.3); GLUCOSE 108 mg/dL (74-106); POTASSIUM - SERUM 4.2 mmol/L (3.5-5.1); PROTEIN - SERUM 6.3 g/dL (6.4-8.2); SODIUM 131 mmol/L (136-145); UREA NITROGEN 16 mg/dL (7-18); eGFR NON AFRICAN AMERICAN 87 mL/min (90-120)
[2020-07-31] MEDS ORDERED: TOPROL XL50 MG PO (10:43)
[2020-07-31] MEDS ORDERED: AMIODARONE HCL200 MG PO (10:44)
[2020-07-31] MEDS ORDERED: CARDIZEM30 MG PO (10:45)
--- NOTE | 2020-07-31 10:53 | NUR ---
Nutrition Follow-up: Good/fair PO intake. Reports eating majority of breakfast this AM. Denies N/V/C/D. Diet: Low Na/Cardiac PO intake: 50-100% Wt: 167# (07/31) Last BM: 07/31 Labs noted: Na 131, Glu 109, Ca 8.4, Alb 2.6 Meds noted: Colace, Protonix, KDur, electrolyte protocol -Encourage PO intake and honor food preferences within diet restrictions. -RD follow-up: 08/02
--- NOTE | 2020-07-31 11:47 | MORECARE ---
CASE MANAGEMENT DISCHARGE SUMMARY PATIENT: MARY ANN HERNDON JUDITH UNIT: [id number] ADM DATE: 07/20/20 AGE: 75 : 43 SEX: M [facility] AUTHOR: MINE KRAUSE PHYSICIAN: REFERRING PHYSICIAN: LANDON VAN MD DATE OF SERVICE: 07/31/20 Discharge Plan Patient Name: MARY ANN HERNDON Facility: [facility]:[place] : 1945 Planned Disposition: Home Anticipated Discharge Date: Discharge Date: Expected LOS: Initial Reviewer: [email or web address] Initial Review Date: 07/28/2020 Generated: 07/31/20 12:46 pm Comments DCP- Discharge Planning Updated by [email or web address]: Sofiya Pratt on 07/31/20 9:[address] Patient Name: MARY ANN HERNDON Encounter No: [id number] : 1945 Primary Insurance: MEDICARE A & B Anticipated DC Date: Planned Disposition: Home External Planned Provider: : DCP follow-up note: No changes to plan. Patient planning to discharge to home today. CM explained and served DC IMM. Copy on chart. CM explained orders for Nebulizer and Neb meds. Patient verbalized understanding and satisfaction with discharge plans. CM called Yovany with [facility] about orders for Nebulizer and Neb meds. Faxed orders as requested. DME will deliver Nebulizer and Neb meds with Home Oxygen concentrator today upon hospital DC. Sofiya Pratt DCP- Discharge Planning Updated by [id number]: Sofiya Pratt on 07/28/20 1:[address] Patient Name: MARY ANN HERNDON Admission Status: Elective Accout number: [id number] Admission Date: 07-20-2020 : 1945 Admission Diagnosis:SOLITARY PULMONARY NODULE Attending: LANDON VAN Current LOS: 8 Anticipated DC Date: Planned Disposition: Home Primary Insurance: MEDICARE A & B Discharge Planning Comments: CM met with patient to discuss discharge planning / needs. CM discussed availability of home health, rehab services, and medical equipment. Patient states he plans to discharge to home. Lives with his , Joycelyn who will transport him home upon discharge. States the home environment is safe. Denies the need for Home Health. Signed MIGEL for [facility] D[facility] for Oxygen. Copy on chart. CM explained and served DC IMM. Copy on chart. CM called and spoke with Yovany at [facility] about orders for Oxygen. Faxed records as requested. [facility] will deliver portable tank to patient's room this afternoon in anticipation of potential weekend discharge. CM informed patient and CVICU nurse. Patient verbalized understanding and satisfaction with discharge plans. CM will continue to follow and assist as needed with discharge planning / needs. Pocket Assembler: Sofiya Pratt DCPIA - Discharge Planning Initial Assessment Updated by [id number]: Sofiya Pratt on 07/28/20 3:31 pm * Is the patient Alert and Oriented? Yes * How many steps to enter\exit or inside your home? 1 W/RAIL * PCP DR LANCE SLAUGHTER * Pharmacy [facility] IN [place], [place] * Preadmission Environment Home with Family * ADLs Independent * Equipment Bedside Commode Cane Crutch Grab Bars Rolling Walker Shower Chair * List name and contact numbers for known caregivers / representatives who currently or will assist patient after discharge: JOYCELYN HERNDON, SPOUSE, * Verbal permission to speak to the caregivers and representatives has been obtained from the patient. Yes * Community resources currently utilized None * Additional services required to return to the preadmission environment? No * Can the patient safely return to the preadmission environment? Yes * Has this patient been hospitalized within the prior 30 days at any hospital? No Coverage Notice Reviewer: [id number] Pratt Notice Issued Date-Time: 07/28/2020 14:44 Notice Type: Patient Choice Letter Notice Delivered To: Patient Relationship to Patient: Self Optical Instruments Supervisor Name: Delivery Method: HAND - Hand Delivered Ingrid Days: Prior Verbal Notification: Recipient Understood Notice: Yes Recipient Signature: Yes Med Rec Note Co-signed by Attending: Coverage Notice Comment: Fozia SHARIF Reviewer: [id number] Pratt Notice Issued Date-Time: 07/28/2020 14:45 Notice Type: IM Discharge Notice Notice Delivered To: Patient Relationship to Patient: Self Optical Instruments Supervisor Name: Delivery Method: HAND - Hand Delivered Ingrid Days: Prior Verbal Notification: Recipient Understood Notice: Yes Recipient Signature: Yes Med Rec Note Co-signed by Attending: Coverage Notice Comment: Reviewer: LITO Pratt Notice Issued Date-Time: 07/31/2020 11:17 Notice Type: IM Discharge Notice Notice Delivered To: Patient Relationship to Patient: Self Optical Instruments Supervisor Name: Delivery Method: HAND - Hand Delivered Ingrid Days: Prior Verbal Notification: Recipient Understood Notice: Yes Recipient Signature: Yes Med Rec Note Co-signed by Attending: Coverage Notice Comment: Last DP export: 07/28/20 1:41 p Patient Name: MARY ANN HERNDON Page [phone] at 1147 All edits/amendments must be made on the electronic document DICTATION DATE: 07/31/20 1146 MBA INTERN: MARLIN 07/31/20 1146 RPT#: [id number] DC DATE: STATUS: ADM IN [facility] [address] [place] [address] END OF REPORT
[2020-07-31] MEDS ORDERED: DIGOXIN250 MCG PO (12:21)
--- NOTE | 2020-07-31 13:11 | NUR ---
CVL DCD TIP INTACT
--- NOTE | 2020-07-31 14:19 | NUR ---
DC INSTRUCTIONS REVIEWED WITH PT AND BY MYSELF AND DR PICKARD NURSE SHNAE, DENIES QUESTIONS, ASSITED TO VEHICLE WITH HOME O2 AND DCD
--- NOTE | 2020-07-31 15:29 | MORECARE ---
CASE MANAGEMENT DISCHARGE SUMMARY PATIENT: MARY ANN HERNDON JUDITH UNIT: [id number] ADM DATE: 07/20/20 AGE: 75 : 43 SEX: M [facility] AUTHOR: MINE KRAUSE PHYSICIAN: REFERRING PHYSICIAN: LANDON VAN MD DATE OF SERVICE: 07/31/20 Discharge Plan Patient Name: MARY ANN HERNDON Facility: [facility]:[place] : 1945 Planned Disposition: Home Anticipated Discharge Date: Discharge Date: 07/31/2020 Expected LOS: Initial Reviewer: [id number] Initial Review Date: 07/28/2020 Generated: 07/31/20 4:28 pm Comments DCP- Discharge Planning Updated by [email or web address]: Sofiya Pratt on 07/31/20 9:[address] Patient Name: MARY ANN HERNDON Encounter No: [id number] : 1945 Primary Insurance: MEDICARE A & B Anticipated DC Date: Planned Disposition: Home External Planned Provider: : DCP follow-up note: No changes to plan. Patient planning to discharge to home today. CM explained and served DC IMM. Copy on chart. CM explained orders for Nebulizer and Neb meds. Patient verbalized understanding and satisfaction with discharge plans. CM called Yovany with [facility] about orders for Nebulizer and Neb meds. Faxed orders as requested. DME will deliver Nebulizer and Neb meds with Home Oxygen concentrator today upon hospital DC. Sofiya Pratt DCP- Discharge Planning Updated by [id number]: Sofiya Pratt on 07/28/20 1:[address] Patient Name: MARY ANN HERNDON Admission Status: Elective Accout number: [id number] Admission Date: 07-20-2020 : 1945 Admission Diagnosis:SOLITARY PULMONARY NODULE Attending: LANDON VAN Current LOS: 8 Anticipated DC Date: Planned Disposition: Home Primary Insurance: MEDICARE A & B Discharge Planning Comments: CM met with patient to discuss discharge planning / needs. CM discussed availability of home health, rehab services, and medical equipment. Patient states he plans to discharge to home. Lives with his , Joycelyn who will transport him home upon discharge. States the home environment is safe. Denies the need for Home Health. Signed MIGEL for [facility] for Oxygen. Copy on chart. CM explained and served DC IMM. Copy on chart. CM called and spoke with Yovany at [facility] about orders for Oxygen. Faxed records as requested. [facility] will deliver portable tank to patient's room this afternoon in anticipation of potential weekend discharge. CM informed patient and CVICU nurse. Patient verbalized understanding and satisfaction with discharge plans. CM will continue to follow and assist as needed with discharge planning / needs. Concrete Building Assembler: Sofiya Pratt DCPIA - Discharge Planning Initial Assessment Updated by [id number]: Sofiya Pratt on 07/28/20 3:31 pm * Is the patient Alert and Oriented? Yes * How many steps to enter\exit or inside your home? 1 W/RAIL * PCP DR LANCE SLAUGHTER * Pharmacy [facility] IN [place], [place] * Preadmission Environment Home with Family * ADLs Independent * Equipment Bedside Commode Cane Crutch Grab Bars Rolling Walker Shower Chair * List name and contact numbers for known caregivers / representatives who currently or will assist patient after discharge: JOYCELYN HERNDON, SPOUSE, * Verbal permission to speak to the caregivers and representatives has been obtained from the patient. Yes * Community resources currently utilized None * Additional services required to return to the preadmission environment? No * Can the patient safely return to the preadmission environment? Yes * Has this patient been hospitalized within the prior 30 days at any hospital? No Coverage Notice Reviewer: [id number] Pratt Notice Issued Date-Time: 07/28/2020 14:44 Notice Type: Patient Choice Letter Notice Delivered To: Patient Relationship to Patient: Self Raisin Separator Operator Name: Delivery Method: HAND - Hand Delivered Ingrid Days: Prior Verbal Notification: Recipient Understood Notice: Yes Recipient Signature: Yes Med Rec Note Co-signed by Attending: Coverage Notice Comment: Fozia SHARIF Reviewer: [id number] Pratt Notice Issued Date-Time: 07/28/2020 14:45 Notice Type: IM Discharge Notice Notice Delivered To: Patient Relationship to Patient: Self Raisin Separator Operator Name: Delivery Method: HAND - Hand Delivered Ingrid Days: Prior Verbal Notification: Recipient Understood Notice: Yes Recipient Signature: Yes Med Rec Note Co-signed by Attending: Coverage Notice Comment: Reviewer: [email or web address] Chris Pratt Notice Issued Date-Time: 07/31/2020 11:17 Notice Type: IM Discharge Notice Notice Delivered To: Patient Relationship to Patient: Self Raisin Separator Operator Name: Delivery Method: HAND - Hand Delivered Ingrid Days: Prior Verbal Notification: Recipient Understood Notice: Yes Recipient Signature: Yes Med Rec Note Co-signed by Attending: Coverage Notice Comment: Last DP export: 07/31/20 9:47 a Patient Name: MARY ANN HERNDON Page [id number] at 1529 All edits/amendments must be made on the electronic document DICTATION DATE: 07/31/20 1528 BANK OPERATIONS OFFICER: MARLIN 07/31/20 1528 RPT#: [id number] DC DATE:07/31/20 STATUS: DIS IN [facility] [address] [place] [address] END OF REPORT
== END 2020-07-31 14:19 | disposition home or self-care (01) | DRG 164 ==
LOC: D.ICU 05:03 → D.SDCHOLD 05:03 → D.CVICU 05:03 → D.SDCHOLD 07:30 → D.ICU 11:21 → D.CVICU 07-23 17:21
PROVIDERS: Family Medicine; Internal Medicine Pulmonary Disease; ADMIT Thoracic Surgery (Cardiothoracic Vascular Surgery); ATTEND Thoracic Surgery (Cardiothoracic Vascular Surgery)
PROC: 0BBD0ZZ Excision of Right Middle Lung Lobe, Open Approach (ICD-10-PCS; principal; 2020-07-20 07:30)
PROC: 07B70ZX Excision of Thorax Lymphatic, Open Approach, Diagnostic (ICD-10-PCS; 2020-07-20 07:30)
PROC: 0W9B30Z Drainage of Left Pleural Cavity with Drainage Device, Percutaneous Approach (ICD-10-PCS; 2020-07-24)
DX: D14.31 Benign neoplasm of right bronchus and lung (principal); I48.20 Chronic atrial fibrillation, unspecified; J93.9 Pneumothorax, unspecified; J93.82 Other air leak; E87.1 Hypo-osmolality and hyponatremia; T79.7XXA Traumatic subcutaneous emphysema, initial encounter; C44.90 Unspecified malignant neoplasm of skin, unspecified; R91.8 Other nonspecific abnormal finding of lung field; J43.9 Emphysema, unspecified; J30.9 Allergic rhinitis, unspecified; Z87.891 Personal history of nicotine dependence; R60.0 Localized edema; E88.09 Other disorders of plasma-protein metabolism, not elsewhere classified

== ENCOUNTER → 2020-08-07 10:39 | Outpatient (CLI) | payer MEDICARE, OTHER ==
[2020-07-21 10:50] VITALS: BMI 29.7
[~2020-08-07 10:39] MED LIST changes: +AMIODARONE HCL200 MG PO; +CARDIZEM30 MG PO; +DIGOXIN250 MCG PO; +LOW DOSE ASPIRI81 M1 PO; +MUCINEX DM ER1 EAC1 PO; +TOPROL XL50 MG PO
== END | disposition home or self-care (01) ==
LOC: D.RT 10:39
PROVIDERS: ATTEND Internal Medicine Pulmonary Disease
DX: J44.9 Chronic obstructive pulmonary disease, unspecified (principal)

== ENCOUNTER → 2020-08-23 10:12 | Outpatient (CLI) | payer MEDICARE, OTHER ==
[2020-07-21 10:50] VITALS: BMI 29.7
== END | disposition home or self-care (01) ==
LOC: D.RAD 10:12
PROVIDERS: ATTEND Thoracic Surgery (Cardiothoracic Vascular Surgery)
DX: D14.30 Benign neoplasm of unspecified bronchus and lung (principal)